=== PATIENT | male | born 1970 | race Caucasian/White ===

== ENCOUNTER 2021-10-30 14:06 | Inpatient (IN) | payer BC ==
[~2021-10-30] VITALS: Ht 175.3 cm; Wt 86.2 kg
[2021-10-30 14:39] LABS: BASOPHILS ABSOLUTE AUTO 0.03 K/mm3 (0.00-0.23); BASOPHILS PERCENT AUTO 0 % (0-2); EOSINOPHILS ABSOLUTE AUTO 0.13 K/mm3 (0.00-0.68); EOSINOPHILS PERCENT AUTO 1 % (0-6); Hematocrit 43.6 % (37.0-53.0); Hemoglobin 15.2 g/dL (13.5-17.5); IMMATURE GRAN ABSOLUTE AUTO 0.05 K/mm3 (0.00-0.10); IMMATURE GRAN PERCENT AUTO 1 % (0-1); LYMPHOCYTES ABSOLUTE AUTO 1.91 K/mm3 (0.84-5.20); LYMPHOCYTES PERCENT AUTO 20 % (21-46); MONOCYTES ABSOLUTE AUTO 0.79 K/mm3 (0.16-1.47); MONOCYTES PERCENT AUTO 8 % (4-13); Mean Corpuscular HGB 32.7 pg (26.0-34.0); Mean Corpuscular HGB Conc 34.9 g/dL (31.5-36.5); Mean Corpuscular Volume 94 fL (80-100); Mean Platelet Volume 10.3 fL (9.1-12.4); NEUTROPHILS ABSOLUTE AUTO 6.65 K/mm3 (1.96-9.15); NEUTROPHILS PERCENT AUTO 70 % (41-73); Platelet Count 233 K/mm3 (150-400); RDW Standard Deviation 41.5 fL (35.1-46.3); Red Blood Cell Count 4.65 M/mm3 (4.30-5.90); White Blood Cell Count 9.56 K/mm3 (4.00-11.30)
[2021-10-30] MEDS ORDERED: LISI5 PO (14:44)
[2021-10-30 14:55] LABS: Alanine Aminotransfer (ALT/SGP 74 U/L (12-78); Albumin, Blood 4.3 g/dL (3.4-5.0); Albumin/Globulin Ratio 1.2 (0.8-1.8); Alk Phos 54 U/L (50-136); Anion Gap 7 mmol/L (6-16); Aspartate Aminotrans (AST/SGOT 35 U/L (12-37); Bilirubin, Total 0.8 mg/dL (0.1-1.0); Blood Urea Nitrogen 16 mg/dL (8-24); Bun/Creatinine Ratio 17.3 (12.0-20.0); CO2, Blood 29 mmol/L (21-32); Calcium, Blood 9.6 mg/dL (8.5-10.1); Chloride, Blood 105 mmol/L (98-108); Creatinine, Blood 0.93 mg/dL (0.60-1.20); Globulin, Blood 3.6 g/dL (2.2-4.0); Glomerular Filtration Rate >60 (60-); Glucose, Blood 186 mg/dL (70-99); Potassium, Blood 3.8 mmol/L (3.5-5.5); Sodium, Blood 141 mmol/L (136-145); Total Protein, Blood 7.9 g/dL (6.4-8.2)
[2021-10-30 15:48] LABS: International Normalized Ratio 1.06; Prothrombin Time Results 11.1 Sec (9.7-11.5)
--- NOTE | 2021-10-30 23:34 | NUR ---
RECEIVED PATIET TO UNIT ABOUT 2140. ALERT AND ORIENTED X'S 3. NO ACUTE DISTRESS NOTED, RESPIRATIONS EVEN AND UNLABORED, LUNG SOUNDS DIMINISHED. LEFT CHEST TUBE IN PLACE WITH DRESSING C/D/I, APPLIED TO WALL SUCTION AND TO WATER SEAL DRAINAGE UNIT. ORIENTED PATIENT TO ROOM AND CALL HERNANDEZ, [id number] UNDERSTANDING, SAFETY MAINTAINED.
--- NOTE | 2021-10-31 05:20 | NUR ---
SLEPT WELL THROUGH NIGHT. MEDICATED WITH PERCOCET X'S 1 DUE TO LEFT RIB PAIN, EFFECTIVE RELIEF. CHEST TUBE DRAINING SANGUINOUS FLUID, DRESSING C/D/I TO LEFT CHEST. NO ACUTE DISTRES NOTED, RESPIRATIONS EVEN AND UNLABORED. SAFETY MAINTAINED, CALL HERNANDEZ IN REACH.
--- NOTE | 2021-10-31 06:17 | NUR ---
CHEST TUBE DRAINED 75ML SANGUINOUS FLUID.
--- NOTE | 2021-10-31 07:48 | NUR ---
PATIENT CURRENTLYING LYING IN BED WITH NO SIGNS OR SYMPTOMS ACUTE DISTRESS NOTED. COMPLAINS OF PAIN TO LEFT CHEST WILL MEDICATED WHEN MED AVAILABLE. CALL LIGHT AND WATER IN EASY REACH. ABLE TO MAKE NEEDS AND WANTS KNOWN. WILL MONITOR.
--- NOTE | 2021-10-31 17:00 | NUR ---
PATIENT CURRENTLY SITTING UP IN BED WITH NO SIGNS OR SYMPTOMS ACUTE DISTRESS NOTED. CALL LIGHT AND WATER IN EASY REACH. ABLE TO MAKE NEEDS AND WANTS KNOWN. O2 AT 2L PER NC. CHEST TUBE IN PLACE, NO DRAINAGE NOTED TO DRESSING ON LEFT CHEST AREA. CHEST TUBE TO WALL SUCTION AT -20. DR ARNETT SAYS THERE IS A SMALL LEAK. PATIENT GIVEN AN IS AND WAS TAUGHT HOW TO USE IT AND HAS BEEN USING IT APPROPRIATELY. PATIENT HAS BEEN MEDICATED WITH PO PAIN MEDS PER ORDERS SEE EMAR. STATES PAIN MEDS ARE EFFECTIVE. WILL CONTINUE TO MONITOR.
--- NOTE | 2021-11-01 04:41 | NUR ---
SHIFT SUMMARY: PT. AOX4, L CHEST TUBE IN PLACE CONNECTED TO WALL SUCTION & WATER DRAINAGE. COMPLAINTS OF L RIBS PAIN MEDICATED, SEE EMAR. VOIDING CLEAR HAROLDO URINE VIA THE URINAL. MIRALAX GIVEN FOR COMPLAINTS OF CONSTIPATION.PT. SLEPT WELL, NO S/S OF OF RESP./CV DISTRESS NOTED. REMINDED TO CALL FOR ANY HELP USING A CALL LIGHT, PT. VERBALIZED UNDERSTANDING. WILL CONTINUE TO MONITOR.
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
--- NOTE | 2021-11-01 17:53 | NUR ---
PATIENT CURRENTLY SITTING UP IN [place] AT BEDSIDE. NO COMPLANTS OF SOB, ON ROOM AIR. NO SIGNS OR SYMPTOMS ACUTE DISTRESS NOTED. PLACED CHEST TUBE TO WATER SEAL AT ABOUT 1330 TODAY PER ORDERS. NO NOTED INCREASED SOB PER PATIENT. PATIENT MEDICATED FROM PAIN PER ORDERS, MED IS EFFECTIVE FOR PAIN PER PATIENT. PATIENT UP TO BATHROOM, HAD BM TODAY. CALL LIGHT AND WATER IN EASY REACH. ABLE TO MAKE NEEDS AND WANTS KNOWN. WILL MONITOR.
[2021-11-02] MEDS ORDERED: MIRALAX17 GM PO (10:16)
[2021-11-02] MEDS ORDERED: Norco 5-325 Ta1 EACH PO (10:17)
--- NOTE | 2021-11-02 16:10 | NUR ---
DISCHARGE INSTUCTIONS GIVEN TO PATIENT AT THIS TIME, PATIENT VERBALIZED UNDERSTANDING. PRESCRIPTION GIVEN FOR PAIN MEDS. DRESSING TO LEFT CHEST AND LEFT HAD ARE CDI. NO SIGNS OR SYMPTOMS ACUTE DISTRESS NOTE. AWAITING RIDE HOME. PATIENT DISCHARGING HOME.
== END 2021-11-02 16:52 | disposition home or self-care (01) | DRG 964 ==
LOC: ER 14:06 → SURS 19:10
PROVIDERS: Physician Assistant; Student in an Organized Health Care Education/Training Program; ADMIT Surgery
PROC: 0HQGXZZ Repair Left Hand Skin, External Approach (ICD-10-PCS; principal; 2021-10-30)
PROC: 0W9B30Z Drainage of Left Pleural Cavity with Drainage Device, Percutaneous Approach (ICD-10-PCS; 2021-10-30)
DX: S27.2XXA Traumatic hemopneumothorax, initial encounter (principal); S22.42XA Multiple fractures of ribs, left side, initial encounter for closed fracture; S28.0XXA Crushed chest, initial encounter; S61.412A Laceration without foreign body of left hand, initial encounter; I10 Essential (primary) hypertension; Z28.21 Immunization not carried out because of patient refusal; Z79.899 Other long term (current) drug therapy; W23.1XXA Caught, crushed, jammed, or pinched between stationary objects, initial encounter
CPT/HCPCS: 12002; 32551; 71045; 71260; 73120; 74177; 80053; 84484; 85025; 85610; 85730; 93005; 93010; 96374; 96375; 96376; 99285-25; A9270; J1170; J1650; J1885; J3010; Q9967